=== PATIENT | male | born 1975 | race Caucasian/White ===

== ENCOUNTER 2021-10-10 10:38 | Inpatient (IN) | payer BC, OTHER ==
[2021-10-10] MEDS ORDERED: FUROSEMIDE 10 MG/ML 4 ML VIAL IV STA (11:06)
[2021-10-10] MEDS ORDERED: hydrALAZINE HCL 20 MG/ML 1 ML VIAL IVP STA (11:07)
[2021-10-10] MEDS ORDERED: NITROGLYCERIN OINT 1 INCH/GM PACKET TOPICAL STA (11:07)
--- NOTE | 2021-10-10 11:08 | ED ---
General Adult HPI - General Chief complaint: Shortness of Breath Stated complaint: sob Time Seen by Provider: 10/10/21 10:55 Source: patient, RN notes reviewed, old records reviewed Mode of arrival: ambulatory Limitations: no limitations - History of Present Illness Initial comments: This is a 46-year-old male with past medical history significant for congestive heart failure and high blood pressure. Patient states he is not compliant with any of his medications. Patient states he's had difficulty breathing over the last 2 or 3 days and is getting progressively worse. Patient also has noted swelling in his legs increased. Patient denies any chest pain or palpitations. Patient denies any recent fever chills or cough per patient denies headache patient denies numbness weakness. Patient denies lightheadedness or dizziness. Patient denies any abdominal pain patient denies nausea vomiting diarrhea. Patient denies any calf tenderness. - Related Data Allergies Allergy/AdvReac Type Severity Reaction Status Date / Time No Known Allergies Allergy Verified 10/10/21 10:51 Review of Systems ROS Statement: Those systems with pertinent positive or pertinent negative responses have been documented in the HPI. ROS Other: All systems not noted in ROS Statement are negative. Past Medical History Past Medical History: No Reported History Additional Past Medical History / Comment(s): cardiomyopathy History of Any Multi-Drug Resistant Organisms: None Reported Past Surgical History: Heart Catheterization Past Psychological History: No Psychological Hx Reported Past Alcohol Use History: None Reported Past Drug Use History: None Reported General Exam - General Exam Comments Initial Comments: GENERAL: Patient is well-developed and well-nourished. Patient is nontoxic and well- hydrated and is in mild distress. ENT: Neck is soft and supple. No significant lymphadenopathy is noted. Oropharynx is clear. Moist mucous membranes. Neck has full range of motion without eliciting any pain. EYES: The sclera were anicteric and conjunctiva were pink and moist. Extraocular movements were intact and pupils were equal round and reactive to light. Eyelids were unremarkable. PULMONARY: Unlabored respirations. Good breath sounds bilaterally. No audible rales rhonc hi or wheezing was noted. CARDIOVASCULAR: There is a regular rate and rhythm without any murmurs gallops or rubs. ABDOMEN: Soft and nontender with normal bowel sounds. SKIN: Skin is clear with no lesions or rashes and otherwise unremarkable. NEUROLOGIC: Patient is alert and oriented x3. Cranial nerves II through XII are grossly intact. Motor and sensory are also intact. Normal speech, volume and content. Symmetrical smile. MUSCULOSKELETAL: Normal extremities with adequate strength and full range of motion. 1+ edema bilaterally LYMPHATICS: No significant lymphadenopathy is noted PSYCHIATRIC: Normal psychiatric evaluation. Limitations: no limitations Course Vital Signs 10/10/21 10/10/21 10/10/21 10:48 11:17 11:31 Temperature 98.1 F Pulse Rate 70 104 H Respiratory 22 15 16 Rate Blood Pressure 205/137 152/103 O2 Sat by Pulse 98 94 L Oximetry 10/10/21 10/10/21 11:40 12:02 Temperature Pulse Rate 108 H 105 H Respiratory 25 H 18 Rate Blood Pressure 145/88 141/89 O2 Sat by Pulse 95 Oximetry Medical Decision Making - Medical Decision Making EKG shows sinus tachycardia at 111 bpm UT interval 132 QRS is 96 QT interval 344 QTC is 410. Patient's EKG shows no ST segment elevation or depression. Chest x-ray shows pulmonary edema. Patient received hydralazine emergency department as well as Lasix. I spoke with Dr. Estrada she agreed to admit the patient admitted the patient wrote admitting orders. I consult to cardiology - Lab Data Result diagrams: 10/10/21 11:09 10/10/21 11:09 Lab Results 10/10/21 10/10/21 10/10/21 Range/Units 11:09 11:09 11:09 WBC 7.7 (3.8-10.6) k/uL RBC 5.23 (4.30-5.90) m/uL Hgb 15.0 (13.0-17.5) gm/dL Hct 46.6 (39.0-53.0) % MCV 89.1 (80.0-100.0) fL MCH 28.7 (25.0-35.0) pg MCHC 32.2 (31.0-37.0) g/dL RDW 15.6 H (11.5-15.5) % Plt Count 277 (150-450) k/uL MPV 7.8 Neutrophils % 77 % Lymphocytes % 11 % Monocytes % 6 % Eosinophils % 3 % Basophils % 0 % Neutrophils # 5.9 (1.3-7.7) k/uL Lymphocytes # 0.8 L (1.0-4.8) k/uL Monocytes # 0.4 (0-1.0) k/uL Eosinophils # 0.2 (0-0.7) k/uL Basophils # 0.0 (0-0.2) k/uL Hypochromasia Slight PT 10.6 (9.0-12.0) sec INR 1.0 (<1.2) APTT 23.2 (22.0-30.0) sec Sodium 140 (137-145) mmol/L Potassium 4.5 (3.5-5.1) mmol/L Chloride 100 (98-107) mmol/L Carbon Dioxide 31 H (22-30) mmol/L Anion Gap 9 mmol/L BUN 15 (9-20) mg/dL Creatinine 1.08 (0.66-1.25) mg/dL Est GFR (CKD-EPI)AfAm >90 (>60 ml/min/1.73 sqM) Est GFR (CKD-EPI)NonAf 81 (>60 ml/min/1.73 sqM) Glucose 111 H (74-99) mg/dL Plasma Lactic Acid Arturo (0.7-2.0) mmol/L Calcium 9.0 (8.4-10.2) mg/dL Magnesium 2.0 (1.6-2.3) mg/dL Total Bilirubin 0.9 (0.2-1.3) mg/dL AST 26 (17-59) U/L ALT 33 (4-49) U/L Alkaline Phosphatase 79 (38-126) U/L Troponin I (0.000-0.034) ng/mL NT-Pro-B Natriuret Pep pg/mL Total Protein 7.4 (6.3-8.2) g/dL Albumin 4.1 (3.5-5.0) g/dL 10/10/21 10/10/21 10/10/21 Range/Units 11:09 11:09 11:09 WBC (3.8-10.6) k/uL RBC (4.30-5.90) m/uL Hgb (13.0-17.5) gm/dL Hct (39.0-53.0) % MCV (80.0-100.0) fL MCH (25.0-35.0) pg MCHC (31.0-37.0) g/dL RDW (11.5-15.5) % Plt Count (150-450) k/uL MPV Neutrophils % % Lymphocytes % % Monocytes % % Eosinophils % % Basophils % % Neutrophils # (1.3-7.7) k/uL Lymphocytes # (1.0-4.8) k/uL Monocytes # (0-1.0) k/uL Eosinophils # (0-0.7) k/uL Basophils # (0-0.2) k/uL Hypochromasia PT (9.0-12.0) sec INR (<1.2) APTT (22.0-30.0) sec Sodium (137-145) mmol/L Potassium (3.5-5.1) mmol/L Chloride (98-107) mmol/L Carbon Dioxide (22-30) mmol/L Anion Gap mmol/L BUN (9-20) mg/dL Creatinine (0.66-1.25) mg/dL Est GFR (CKD-EPI)AfAm (>60 ml/min/1.73 sqM) Est GFR (CKD-EPI)NonAf (>60 ml/min/1.73 sqM) Glucose (74-99) mg/dL Plasma Lactic Acid Arturo 1.0 (0.7-2.0) mmol/L Calcium (8.4-10.2) mg/dL Magnesium (1.6-2.3) mg/dL Total Bilirubin (0.2-1.3) mg/dL AST (17-59) U/L ALT (4-49) U/L Alkaline Phosphatase (38-126) U/L Troponin I 0.026 (0.000-0.034) ng/mL NT-Pro-B Natriuret Pep 3870 pg/mL Total Protein (6.3-8.2) g/dL Albumin (3.5-5.0) g/dL Critical Care Time Critical Care Time: Yes Total Critical Care Time: 35 Disposition Clinical Impression: Acute pulmonary edema, Hypertensive emergency Disposition: ADMITTED IP TO THIS HOSP Is patient prescribed a controlled substance at d/c from ED?: No Referrals: None,Stated [Primary Care Provider] - 1-2 days Time of Disposition: 12:13
[2021-10-10 11:26] LABS: Basophils % (A) 0 %; Eosinophils # (A) 0.2 k/uL (0-0.7); Eosinophils % (A) 3 %; HCT 46.6 % (39.0-53.0); Hypochromasia Slight; Lymphocytes # (A) 0.8 k/uL (1.0-4.8); Lymphocytes % (A) 11 %; MCH 28.7 pg (25.0-35.0); MCHC 32.2 g/dL (31.0-37.0); MCV 89.1 fL (80.0-100.0); Mean Platelet Volume 7.8; Monocytes # (A) 0.4 k/uL (0-1.0); Monocytes % (A) 6 %; Neutrophils # (A) 5.9 k/uL (1.3-7.7); Neutrophils % (A) 77 %; Platelet Count 277 k/uL (150-450); RBC 5.23 m/uL (4.30-5.90); RDW 15.6 % (11.5-15.5); WBC 7.7 k/uL (3.8-10.6)
[2021-10-10 11:36] LABS: ALT 33 U/L (4-49); AST 26 U/L (17-59); African American GFR (CKD) >90 (>60 ml/min/1.73 sqM); Albumin 4.1 g/dL (3.5-5.0); Alkaline Phosphatase 79 U/L (38-126); Anion Gap 9 mmol/L; Blood Urea Nitrogen 15 mg/dL (9-20); Carbon Dioxide 31 mmol/L (22-30); Chloride 100 mmol/L (98-107); Glucose 111 mg/dL (74-99); Non-African American GFR(CKD) 81 (>60 ml/min/1.73 sqM); Potassium 4.5 mmol/L (3.5-5.1); Sodium 140 mmol/L (137-145); Total Bilirubin 0.9 mg/dL (0.2-1.3); Total Protein 7.4 g/dL (6.3-8.2)
--- NOTE | 2021-10-10 11:41 | XR ---
EXAMINATION TYPE: XR chest 2V DATE OF EXAM: 10/10/2021 11:36 AM COMPARISON: None. TECHNIQUE: XR chest 2V Frontal and lateral views of the chest. CLINICAL INDICATION:Male, 46 years old with history of difficulty breathing; FINDINGS: Lungs/Pleura: There is no evidence of pleural effusion, focal consolidation, or pneumothorax. Pulmonary vascularity: Mild pulmonary vascular congestion. Heart/mediastinum: Cardiomediastinal silhouette is enlarged. Musculoskeletal: No acute osseous pathology. IMPRESSION: Cardiomegaly and mild pulmonary vascular congestion. Correlate with BNP for congestive heart failure.
[2021-10-10 11:44] LABS: Partial Thromboplastin Time 23.2 sec (22.0-30.0); Prothrombin Time 10.6 sec (9.0-12.0)
[2021-10-10] MEDS: NITROGLYCERIN OINT 1 INCH/GM PACKET TOPICAL SCH ×3 (12:22→23:28)
[2021-10-10] MEDS ORDERED: NALOXONE 0.4 MG/ML 1 ML VIAL IV PRN (15:57)
--- NOTE | 2021-10-10 17:05 | P.HPIM ---
History of Present Illness H&P Date: 10/10/21 Chief Complaint: sob 46-year-old male with past medical history significant for congestive heart failure and high blood pressure presented for sob which has been worsening for the past 2 days. He has lower extremities edema for the same period. Patient states he is not compliant with any of his medications and has not taken them for a while now. Has cough productive of white phlegm. Patient denies any chest pain or palpitations. Patient denies any recent fever chills. No headache, no numbness weakness. Patient denies lightheadedness or dizziness. Patient denies any abdominal pain patient denies nausea vomiting diarrhea. Patient denies any calf tenderness. In the ER he was found to be in CHF, BNP 3870, CXR with cardiomegaly and vascular congestion, he was given IV lasix. He is feeling better now, will be admitted for further evaluation. Review of Systems Complete review of system performed, pertinent positives per HPI, otherwise negative Past Medical History Past Medical History: No Reported History Additional Past Medical History / Comment(s): cardiomyopathy History of Any Multi-Drug Resistant Organisms: None Reported Past Surgical History: Heart Catheterization Past Psychological History: No Psychological Hx Reported Past Alcohol Use History: None Reported Past Drug Use History: None Reported Medications and Allergies Home Medications Medication Instructions Recorded Confirmed Type No Known Home Medications 10/10/21 10/10/21 History Allergies Allergy/AdvReac Type Severity Reaction Status Date / Time No Known Allergies Allergy Verified 10/10/21 12:51 Physical Exam Vitals: Vital Signs Temp Pulse Resp BP Pulse Ox 10/10/21 13:57 95 17 133/84 95 10/10/21 13:10 92 18 140/73 10/10/21 12:40 96 15 135/88 10/10/21 12:02 105 H 18 141/89 95 10/10/21 11:40 108 H 25 H 145/88 10/10/21 11:31 16 10/10/21 11:17 104 H 15 152/103 94 L 10/10/21 10:48 98.1 F 70 22 205/137 98 Intake and Output 10/10/21 10/10/21 10/10/21 06:59 14:59 22:59 Output Total 2400 Balance -2400 Output: Urine 2400 Other: # Voids 3 Weight 140.614 kg Constitutional: No acute distress, conversant, pleasant Eyes:Anicteric sclerae, moist conjunctiva, no lid-lag, PERRLA, ENMT: Oropharynx clear, no erythema, exudates Neck: Supple, FROM, no masses, or JVD, No carotid bruits, No thyromegaly Lungs: Clear to auscultation, Clear to percussion, Normal respiratory effort, no accessory muscle use Cardiovascular: Heart regular in rate and rhythm, No murmurs, gallops, or rubs, 2+ peripheral edema Abdominal: Soft, Nontender, no guarding, rebound or rigidity, Normoactive bowel sounds, No hepatomegaly, No splenomegaly, No palpable mass Skin: Normal temperature, tone, texture, turgor, no induration, No subcutaneous nodules, No rash, lesions, No ulcers Extremities: No digital cyanosis, No clubbing, Pedal pulses intact and symmetrical, Radial pulses intact and symmetrical, No calf tenderness Psychiatric: Alert and oriented to person, place and time, appropriate affect, intact judgement Neuro: Muscles Strength 5/5 in all 4 extremities, Sensation to light touch grossly present throughout, Cranial nerves II-XII grossly intact, no focal sensory deficits Results CBC & Chem 7: 10/10/21 11:09 10/10/21 11:09 Labs: Abnormal Lab Results - Last 24 Hours (Table) 10/10/21 10/10/21 Range/Units 11:09 11:09 RDW 15.6 H (11.5-15.5) % Lymphocytes # 0.8 L (1.0-4.8) k/uL Carbon Dioxide 31 H (22-30) mmol/L Glucose 111 H (74-99) mg/dL Assessment and Plan Plan: Acute exacerbation of congestive heart failure Unknown type Echocardiogram Cardiology consult Telemetry Lasix IV Monitor Is and Os and daily weights Hypertensive urgency Resume BP meds IV hydralazine as needed DVT prophylaxis Lovenox subcu Admit to inpatient, expected length of stay more than 2 midnights.
[2021-10-10] MEDS: FUROSEMIDE 10 MG/ML 4 ML VIAL IV SCH (19:44)
[2021-10-11] MEDS: FUROSEMIDE 10 MG/ML 4 ML VIAL IV SCH (04:27)
[2021-10-11 08:40] LABS: Basophils % (A) 0 %; Eosinophils # (A) 0.2 k/uL (0-0.7); Eosinophils % (A) 2 %; HCT 47.2 % (39.0-53.0); HGB 14.6 gm/dL (13.0-17.5); Hypochromasia Slight; Lymphocytes # (A) 0.7 k/uL (1.0-4.8); Lymphocytes % (A) 7 %; MCH 27.4 pg (25.0-35.0); MCHC 30.8 g/dL (31.0-37.0); MCV 88.8 fL (80.0-100.0); Mean Platelet Volume 7.7; Monocytes # (A) 0.7 k/uL (0-1.0); Monocytes % (A) 6 %; Neutrophils # (A) 9.1 k/uL (1.3-7.7); Neutrophils % (A) 84 %; Platelet Count 307 k/uL (150-450); RBC 5.32 m/uL (4.30-5.90); RDW 15.5 % (11.5-15.5); WBC 10.9 k/uL (3.8-10.6)
[2021-10-11 08:55] LABS: ALT 29 U/L (4-49); AST 23 U/L (17-59); African American GFR (CKD) 84 (>60 ml/min/1.73 sqM); Alkaline Phosphatase 77 U/L (38-126); Anion Gap 11 mmol/L; Blood Urea Nitrogen 19 mg/dL (9-20); Carbon Dioxide 35 mmol/L (22-30); Chloride 92 mmol/L (98-107); Glucose 109 mg/dL (74-99); Non-African American GFR(CKD) 73 (>60 ml/min/1.73 sqM); Potassium 3.8 mmol/L (3.5-5.1); Sodium 138 mmol/L (137-145); Total Bilirubin 1.7 mg/dL (0.2-1.3); Total Protein 7.2 g/dL (6.3-8.2)
[2021-10-11] MEDS: ENOXAPARIN 40 MG/0.4 ML SYRINGE SQ SCH (09:23)
[2021-10-11] MEDS: FUROSEMIDE 40 MG TAB PO SCH ×2 (09:23→16:54)
[2021-10-11] MEDS: carvediloL 12.5 MG TAB PO SCH ×2 (09:23→16:54)
--- NOTE | 2021-10-11 10:33 | P.CRDCN ---
History of Present Illness History of present illness: HISTORY OF PRESENTING ILLNESS This is a pleasant 46-year-old male with a history of cardiomyopathy unknown if ischemic or non-ischemic, chronic nicotine dependence, hypertension, medication noncompliance. He used to follow with Dr. Fuller. We have been consulted for congestive heart failure. Patient presents emergency department with complaints of worsening shortness of breath over 2 days. He also noted increased bilateral lower extremity edema. He states that he has stopped taking his medications for a while now. He has not followed up with Dr. Fuller. He denies any chest pain, palpitations, light numbness, dizziness, syncope or near syncope. On admission, he was hypertensive with BP 205/137. He was started on IV Lasix 40 mg Q8hr. Diuresed will with 3.3L urine output and is feeling much better. He denies any shortness of breath this morning or chest pain. He states he does not recall being told why he has heart failure. He states 2 years ago these symptoms occurred and he was told he had congestive heart failure. No known history of [place], Stroke, Diabetes, CAD. He denies illicit drug use or alcohol use. Previous medications included Entresto, Coreg, and Lasix. DIAGNOSTICS * EKG reveals sinus tachycardia, heart rate 111, LVH, no acute ischemia on EKG noted. * Telemetry tracings indicate sinus mechanism * Chest xray revealed likely, mild pulmonary congestion. * Laboratory reviewed, sodium 138, potassium 3.8, BUN 19, serum creatinine 1.18, troponin negative complement PEEP thousand 870, TSH within normal limits REVIEW OF SYSTEMS At the time of my exam: CONSTITUTIONAL: Denies fever or chills. CARDIOVASCULAR: Denies chest pain, +shortness of breath, orthopnea, PND RESPIRATORY: Denies cough. GASTROINTESTINAL: Denies abdominal pain, diarrhea, constipation, nausea or vomiting. MUSCULOSKELETAL: Denies myalgias. NEUROLOGIC: Denies numbness, tingling, headacbe or weakness. ENDOCRINE: Denies fatigue, weight change, polydipsia or polyurina. GENITOURINARY: Denies burning, hematuria or urgency with micturation. HEMATOLOGIC: Denies history of anemia or bleeding. PHYSICAL EXAMINATION Blood pressure 137/60, heart rate 107, afebrile, oxygen saturations 92-97% on r oom air CONSTITUTIONAL: No apparent distress. HEENT: Head is normocephalic. Pupils are equal, round. Sclerae anicteric. Mucous membranes of the mouth are moist. No JVD. CHEST EXAMINATION: Lungs are diminished bilaterally to auscultation. No chest wall tenderness is noted on palpation or with deep breathing. HEART EXAMINATION: Regular rate and rhythm. S1, S2 heard. ABDOMEN: Soft, nontender. Positive bowel sounds. EXTREMITIES: 2+ peripheral pulses, trace bilateral lower extremity edema and no calf tenderness. NEUROLOGIC EXAMINATION: Patient is awake, alert and oriented x3. ASSESSMENT Acute on chronic heart failure with reduced ejection fraction History of cardiomyopathy, unknown if ischemic vs non-ischemic Hypertension Chronic nicotine dependence Medication non-compliance PLAN Obtain 2D echocardiogram and doppler study to assess cardiac structure and function. Transition to PO Lasix 40mg BID Start carvedilol 12.5mg BID Will slowly add back heart failure regimen Smoking cessation discussed and highly recommended Recommend close follow up with missile inspector Dr. Fuller or in [place] based on patient preference Nurse practitioner note has been reviewed by physician. Signing provider agrees with the documented findings, assessment, and plan of care. Past Medical History Past Medical History: No Reported History Additional Past Medical History / Comment(s): cardiomyopathy History of Any Multi-Drug Resistant Organisms: None Reported Past Surgical History: Heart Catheterization Past Psychological History: No Psychological Hx Reported Past Alcohol Use History: None Reported Past Drug Use History: None Reported Medications and Allergies Home Medications Medication Instructions Recorded Confirmed Type No Known Home Medications 10/10/21 10/10/21 History Allergies Allergy/AdvReac Type Severity Reaction Status Date / Time No Known Allergies Allergy Verified 10/10/21 12:51 Physical Exam Vitals: Vital Signs Temp Pulse Resp BP Pulse Ox 10/10/21 12:02 105 H 18 141/89 95 10/10/21 11:40 108 H 25 H 145/88 10/10/21 11:31 16 10/10/21 11:17 104 H 15 152/103 94 L 10/10/21 10:48 98.1 F 70 22 205/137 98 Intake and Output 10/09/21 10/10/21 10/10/21 22:59 06:59 14:59 Other: Weight 140.614 kg Results 10/11/21 07:44 10/11/21 07:44 Cardiac Enzymes 10/10/21 10/10/21 Range/Units 11:09 11:09 AST 26 (17-59) U/L Troponin I 0.026 (0.000-0.034) ng/mL Coagulation 10/10/21 Range/Units 11:09 PT 10.6 (9.0-12.0) sec APTT 23.2 (22.0-30.0) sec CBC 10/10/21 Range/Units 11:09 WBC 7.7 (3.8-10.6) k/uL RBC 5.23 (4.30-5.90) m/uL Hgb 15.0 (13.0-17.5) gm/dL Hct 46.6 (39.0-53.0) % Plt Count 277 (150-450) k/uL Comprehensive Metabolic Panel 10/10/21 Range/Units 11:09 Sodium 140 (137-145) mmol/L Potassium 4.5 (3.5-5.1) mmol/L Chloride 100 (98-107) mmol/L Carbon Dioxide 31 H (22-30) mmol/L BUN 15 (9-20) mg/dL Creatinine 1.08 (0.66-1.25) mg/dL Glucose 111 H (74-99) mg/dL Calcium 9.0 (8.4-10.2) mg/dL AST 26 (17-59) U/L ALT 33 (4-49) U/L Alkaline Phosphatase 79 (38-126) U/L Total Protein 7.4 (6.3-8.2) g/dL Albumin 4.1 (3.5-5.0) g/dL Current Medications Generic Name Dose Route Start Last Admin Trade Name Freq PRN Reason Stop Dose Admin Furosemide 40 mg 10/10/21 19:00 Furosemide 10 Mg/Ml 4 Ml Vial IV Q8H VENKAT Nitroglycerin 1 inch 10/10/21 14:00 10/10/21 12:22 Nitroglycerin Oint 1 Inch/Gm Packet TOPICAL Not Given QID VENKAT Intake and Output 10/09/21 10/10/21 10/10/21 22:59 06:59 14:59 Other: Weight 140.614 kg Patient Weight 10/11/21 06:59 Weight 140.614 kg 10/10/21 11:09 10/10/21 11:09
[2021-10-11 11:25] LABS: Chol/HDL Ratio 4.37 Ratio; LDL Cholesterol,Calculated 101.8 mg/dL (0.0-131.0)
--- NOTE | 2021-10-11 13:23 | P.PN ---
Subjective Progress Note Date: 10/11/21 Principal diagnosis: sob Patient is feeling a lot better today compared to yesterday. He denied having shortness of breath, dizziness or weakness. No chest pain and no palpitation. Objective - Vital Signs Vital signs: Vital Signs Temp 97.8 F 10/11/21 12:34 Pulse 91 10/11/21 12:34 Resp 18 10/11/21 12:34 BP 123/63 10/11/21 12:34 Pulse Ox 92 L 10/11/21 12:34 FiO2 Intake & Output 10/10/21 10/11/21 10/11/21 18:59 06:59 18:59 Intake Total 360 Output Total 2400 900 950 Balance -2400 -900 -777 Weight 140.614 kg 139.7 kg Intake: Oral 360 Output: Urine 2400 900 950 Other: # Voids 3 - Exam Constitutional: No acute distress, conversant, pleasant Eyes:Anicteric sclerae, moist conjunctiva, no lid-lag, PERRLA, ENMT: Oropharynx clear, no erythema, exudates Neck: Supple, FROM, no masses, or JVD, No carotid bruits, No thyromegaly Lungs: Clear to auscultation, Clear to percussion, Normal respiratory effort, no accessory muscle use Cardiovascular: Heart regular in rate and rhythm, No murmurs, gallops, or rubs, No peripheral edema Abdominal: Soft, Nontender, no guarding, rebound or rigidity, Normoactive bowel sounds, No hepatomegaly, No splenomegaly, No palpable mass Skin: Normal temperature, tone, texture, turgor, no induration, No subcutaneous nodules, No rash, lesions, No ulcers Extremities: No digital cyanosis, No clubbing, Pedal pulses intact and symmetrical, Radial pulses intact and symmetrical, No calf tenderness Psychiatric: Alert and oriented to person, place and time, appropriate affect, intact judgement Neuro: Muscles Strength 5/5 in all 4 extremities, Sensation to light touch grossly present throughout, Cranial nerves II-XII grossly intact, no focal sensory deficits - Labs CBC & Chem 7: 10/11/21 07:44 10/11/21 07:44 Labs: Abnormal Lab Results - Last 24 Hours (Table) 10/11/21 10/11/21 10/11/21 Range/Units 07:44 07:44 07:44 WBC 10.9 H (3.8-10.6) k/uL MCHC 30.8 L (31.0-37.0) g/dL Neutrophils # 9.1 H (1.3-7.7) k/uL Lymphocytes # 0.7 L (1.0-4.8) k/uL Chloride 92 L (98-107) mmol/L Carbon Dioxide 35 H (22-30) mmol/L Glucose 109 H (74-99) mg/dL Hemoglobin A1c 6.2 H (0.0-6.0) % Total Bilirubin 1.7 H (0.2-1.3) mg/dL HDL Cholesterol 36.40 L (40.00-60.00) mg/dL Assessment and Plan Plan: Acute exacerbation of congestive heart failure Unknown type Echocardiogram pending Patient was evaluated by cardiology Transition to PO Lasix 40mg BID Start carvedilol 12.5mg BID Director Of Managed Services Is and Os and daily weights Hypertensive urgency Resume BP meds IV hydralazine as needed DVT prophylaxis Lovenox subcu Anticipated discharge in a.m.
[2021-10-11 15:18] VITALS: BMI 46.8
--- NOTE | 2021-10-11 18:25 | CA ---
Transthoracic Echo Report Name: Hira Ibrahim Age: 46 Gender: M : 1975 Exam Date: 10/11/2021 07:48 Exam Location: [facility] Ht (in): 68 Wt (lb): 307 Ordering Physician: Diana Soto MD Attending/Referring Phys: [id number], Brittany Risk Control Officer Deepali Esquivel RDCS Procedure CPT: Indications: chf Cardiac Hx: Technical Quality: Technically difficult study Contrast 1: Lumason Total Dose (mL): 4 Contrast 2: Total Dose (mL): MEASUREMENTS (Male / Female) Normal Values 2D ECHO LV Diastolic Diameter PLAX 6.1 cm 4.2 - 5.9 / 3.9 - 5.3 cm LV Systolic Diameter PLAX 5.2 cm IVS Diastolic Thickness 1.6 cm 0.6 - 1.0 / 0.6 - 0.9 cm LVPW Diastolic Thickness 1.6 cm 0.6 - 1.0 / 0.6 - 0.9 cm LV Relative Wall Thickness 0.5 RV Internal Dim ED PLAX 3.1 cm M-MODE Aortic Root Diameter MM 3.2 cm LA Systolic Diameter MM 4.8 cm LA Ao Ratio MM 1.5 AV Cusp Separation MM 2.0 cm DOPPLER MV Area PHT 4.4 cm??? Mitral E Point Velocity 77.4 cm/s Mitral A Point Velocity 66.8 cm/s Mitral E to A Ratio 1.2 MV Deceleration Time 172.2 ms TR Peak Velocity 195.7 cm/s TR Peak Gradient 15.3 mmHg Right Ventricular Systolic Press 20.3 mmHg FINDINGS Left Ventricle Mildly increased left ventricular diastolic diameter. Moderately increased left ventricular wall thickness. Moderately reduced global left ventricular systolic function. Left ventricular ejection fraction is estimated at 35-40 %. Right Ventricle Right ventricle not well visualized. Right Atrium Right atrium not well visualized. Left Atrium Left atrium not well visualized. Mitral Valve Mitral valve not well visualized. No mitral stenosis. No mitral regurgitation. Aortic Valve Aortic valve not well visualized. No aortic valve stenosis or regurgitation. Tricuspid Valve Tricuspid valve not well visualized. Mild tricuspid regurgitation. Pulmonic Valve Pulmonic valve not well visualized. Pericardium No pericardial effusion. Aorta Aortic root and proximal ascending aorta not well visualized. CONCLUSIONS Technically difficult study. Lumason ECHO contrast used for improved visualization of the endocardial borders (inadequate visualization of two or more contiguous segments). Moderate global hypokinesis, evaluation of segmental wall motion could not be done. Valvular structure could not be evaluated Previewed by: Dr. Jonathon Doll MD (Electronically Signed) Final Date: 11 October 2021 18:24
[2021-10-11 20:14] LABS: Urine Alcohol Negative (Negative); Urine Barbiturate Negative (Negative); Urine Cocaine Negative (Negative); Urine Methadone Negative (Negative); Urine Opiates Negative (Negative); Urine Phencyclidine Negative (Negative)
[2021-10-12] MEDS: carvediloL 12.5 MG TAB PO SCH ×2 (06:37→16:35)
[2021-10-12] MEDS: FUROSEMIDE 40 MG TAB PO SCH ×2 (08:53→16:35)
[2021-10-12] MEDS: ENOXAPARIN 40 MG/0.4 ML SYRINGE SQ SCH (08:53)
--- NOTE | 2021-10-12 09:53 | P.DS ---
Providers Date of admission: 10/10/21 12:14 Expected date of discharge: 10/12/21 Attending physician: Doris Estrada DO Consults: 10/10/21 12:14 Consult Physician Routine Consulting Provider: [facility] Consult Reason/Comments: Acute pulmonary edema, hypertensive urgency Do you want consulting provider notified?: Yes Primary care physician: Stated None Hospital Course: 46-year-old male with past medical history significant for congestive heart failure and high blood pressure presented for sob which has been worsening for the past 2 days. He has lower extremities edema for the same period. Patient states he is not compliant with any of his medications and has not taken them for a while now. Has cough productive of white phlegm. Patient denies any chest pain or palpitations. Patient denies any recent fever chills. No headache, no numbness weakness. Patient denies lightheadedness or dizziness. Patient denies any abdominal pain patient denies nausea vomiting diarrhea. Patient denies any calf tenderness. In the ER he was found to be in CHF, BNP 3870, CXR with cardiomegaly and vascular congestion, he was given IV lasix. He is feeling better now, will be admitted for further evaluation. Patient was continued on diuresis upon admission. He felt much better with that. His weight decreased. Edema improved. He had an echocardiogram that showed ejection fraction of 35-40%. He was seen by cardiology who initiated him on Coreg. Lasix was transitioned to oral. He'll need to follow up with cardiology in the office. He will be discharged home in stable condition. Time for discharge 35 minutes Plan - Discharge Summary Discharge Rx Participant: Yes New Discharge Prescriptions: New Furosemide [Lasix] 40 mg PO DAILY 30 Days #30 tablet carvediloL [Coreg*] 12.5 mg PO BID-W/MEALS 30 Days #60 tab Discharge Medication List Furosemide [Lasix] 40 mg PO DAILY 30 Days #30 tablet 10/12/21 [Rx] carvediloL [Coreg*] 12.5 mg PO BID-W/MEALS 30 Days #60 tab 10/12/21 [Rx] Follow up Appointment(s)/Referral(s): Fredrick Villanueva MD [STAFF PHYSICIAN] - 1 Week Rachel Fuller MD [REFERRING] - 1 Week None,Stated [Primary Care Provider] - 1-2 days Patient Instructions/Handouts: Heart Failure (DC)
[2021-10-12 10:10] VITALS: RESP 18; TEMP 97.8
[2021-10-12 10:35] LABS: African American GFR (CKD) >90 (>60 ml/min/1.73 sqM); Anion Gap 12 mmol/L; Blood Urea Nitrogen 25 mg/dL (9-20); Calcium 9.1 mg/dL (8.4-10.2); Carbon Dioxide 33 mmol/L (22-30); Chloride 93 mmol/L (98-107); Glucose 159 mg/dL (74-99); Non-African American GFR(CKD) 86 (>60 ml/min/1.73 sqM); Sodium 138 mmol/L (137-145)
[2021-10-12 10:40] LABS: Potassium 4.3 mmol/L (3.5-5.1)
[2021-10-12] MEDS ORDERED: lisinopriL 5 MG TAB PO SCH (11:00)
[2021-10-12] MEDS ORDERED: SPIRONOLACTONE 25 MG TAB PO SCH (11:00)
--- NOTE | 2021-10-12 11:09 | P.PN ---
Subjective Progress Note Date: 10/12/21 PROGRESS NOTE The patient is a 46-year-old male with a known history of cardiomyopathy, noncompliance who presented with worsening CHF. He is feeling better this morning. His medical regimen was reinitiated. He was not taking any medication prior to admission. He denies any dizziness, palpitation or syncope. He continues to be in sinus mechanism. He has no PND or orthopnea. Medications: Coreg 12-1/2 mg twice a day, Lasix 40 mg twice daily PHYSICAL EXAMINATION: Blood pressure 132/70 heart rate 80 LUNGS: Clear to auscultation HEART: Regular rate and rhythm, S1, S2. No S3. systolic ejection murmur ABDOMEN: Soft, nontender, no organomegaly EXTREMETIES: +1-2 edema LAB: BUN 25, creatinine 1.03, potassium 4.3 IMPRESSION: 1. CHF with systolic dysfunction, exacerbation secondary to noncompliance 2. Chronic tobacco use 3. History of hypertension 4. Medical noncompliance PLAN: 1. Start Aldactone 2. Restart Entresto 3. Increase physical activity 4. 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 Objective - Vital Signs Vital signs: Vital Signs Temp 97.8 F 10/12/21 08:00 Pulse 86 10/12/21 08:00 Resp 18 10/12/21 08:00 BP 102/55 10/12/21 08:00 Pulse Ox 92 L 10/12/21 08:00 FiO2 Intake & Output 10/11/21 10/12/21 10/12/21 18:59 06:59 18:59 Intake Total 1320 360 Output Total 1250 Balance 70 360 Weight 139.7 kg 140.4 kg Intake: Oral 1320 360 Output: Urine 1250 Other: Voiding Method Toilet Toilet Urinal Urinal - Labs CBC & Chem 7: 10/11/21 07:44 10/12/21 09:04 Labs: Abnormal Lab Results - Last 24 Hours (Table) 10/11/21 10/11/21 10/12/21 Range/Units 07:44 07:44 09:04 Chloride 93 L (98-107) mmol/L Carbon Dioxide 33 H (22-30) mmol/L BUN 25 H (9-20) mg/dL Glucose 159 H (74-99) mg/dL Hemoglobin A1c 6.2 H (0.0-6.0) % HDL Cholesterol 36.40 L (40.00-60.00) mg/dL
[2021-10-12] MEDS ORDERED: SACUBITRIL/VALSARTAN 24 MG-26 MG TABLET PO SCH (12:00)
[2021-10-12 18:03] VITALS: BP 129/84; PULSE 86
== END 2021-10-12 18:08 | disposition home or self-care (01) | DRG 291 ==
LOC: EC 10:38 → 3SCARD 12:14
PROVIDERS: ADMIT Internal Medicine; ATTEND Internal Medicine
DX: I11.0 Hypertensive heart disease with heart failure (principal); I50.23 Acute on chronic systolic (congestive) heart failure; I16.1 Hypertensive emergency; I42.9 Cardiomyopathy, unspecified; R00.0 Tachycardia, unspecified; F17.210 Nicotine dependence, cigarettes, uncomplicated; Z98.61 Coronary angioplasty status; Z91.14 Patient's other noncompliance with medication regimen; Z91.19 Patient's noncompliance with other medical treatment and regimen
CPT/HCPCS: 36415; 71046; 80048; 80053; 80061; 80306; 83036; 83605; 83735; 83880; 84443; 84484; 85025; 85610; 85730; 93005; 93306; 96374; 96375; 99291

== ENCOUNTER 2024-08-11 06:38 | Day surgery (SDC) | payer BC ==
[2024-08-09 15:47] VITALS: BMI 45.6
[2024-08-11] MEDS ORDERED: LIDOCAINE 1% (10MG/ML) FOR IV START INTRADERMA PRN (06:54)
[2024-08-11] MEDS: IV FLUID CONTINUATION 1,000 ML IV ONE (07:12)
[2024-08-11] MEDS: LACTATED RINGERS 1,000 ML IV SCH (07:27)
[2024-08-11 07:31] LABS: Glucose,Whole Blood 92 mg/dL (70-110)
[2024-08-11 07:35] VITALS: TEMP 97.6
[2024-08-11] MEDS ORDERED: LIDOCAINE 1% INJ 10MG/ML (20 ML MDV) ONE (07:39)
[2024-08-11] MEDS ORDERED: PROPOFOL 10 MG/ML 20 ML VIAL IV ONE (07:39)
--- NOTE | 2024-08-11 07:43 | P.GSHP ---
History of Present Illness H&P Date: 08/11/24 Chief Complaint: Positive Cologuard test Is a 49-year-old male who presents today for colonoscopy. Patient had a recent positive Cologuard test. Past Medical History Past Medical History: Diabetes Mellitus, Hyperlipidemia, Hypertension, Thyroid Disorder Additional Past Medical History / Comment(s): cardiomyopathy History of Any Multi-Drug Resistant Organisms: None Reported Past Surgical History: Heart Catheterization, Orthopedic Surgery Additional Past Surgical History / Comment(s): LT KNEE SCOPE Past Anesthesia/Blood Transfusion Reactions: No Reported Reaction Smoking Status: Former smoker - Past Family History Mother Family Medical History: No Reported History Medications and Allergies Home Medications Medication Instructions Recorded Confirmed Type Sacubitril/Valsartan [Entresto 24 1 each PO BID 30 Days #60 tab 10/12/21 08/11/24 Rx mg-26 mg Tablet] Spironolactone [Aldactone] 25 mg PO DAILY 30 Days #30 tab 10/12/21 08/11/24 Rx carvediloL [Coreg*] 12.5 mg PO BID-W/MEALS 30 Days #60 10/12/21 08/11/24 Rx tab Atorvastatin [Lipitor] 40 mg PO DAILY 08/09/24 08/11/24 History Empagliflozin [Jardiance] 25 mg PO DAILY 08/09/24 08/11/24 History Ezetimibe [Zetia] 10 mg PO DAILY 08/09/24 08/11/24 History Furosemide [Lasix] 20 mg PO DAILY 08/09/24 08/11/24 History Levothyroxine Sodium 12.5 mcg PO DAILY 08/09/24 08/11/24 History metFORMIN HCL [Glucophage] 500 mg PO DAILY 08/09/24 08/11/24 History Allergies Allergy/AdvReac Type Severity Reaction Status Date / Time No Known Allergies Allergy Verified 08/11/24 07:20 Surgical - Exam Vital Signs Temp Pulse Resp BP Pulse Ox 97.6 F 79 18 108/47 93 L 08/11/24 07:10 08/11/24 07:10 08/11/24 07:10 08/11/24 07:10 08/11/24 07:10 - General well developed, well nourished, no distress - Eyes PERRL - ENT normal pinna - Neck no masses - Cardiovascular Rhythm: regular - Abdomen Abdomen: soft, non tender Assessment and Plan Plan: Positive Cologuard test. Will perform colonoscopy.
--- NOTE | 2024-08-11 07:59 | P.OP ---
Date of Procedure: 08/11/24 Preoperative Diagnosis: Positive Cologuard test Postoperative Diagnosis: Multiple colon polyps Procedure(s) Performed: Colonoscopy Anesthesia: MAC Surgeon: Maxim Ireland Pathology: other (Left colon polyp, transverse colon polyp, right colon polyp) Condition: stable Disposition: PACU Description of Procedure: The patient was placed on the endoscopy table in the lateral position. He received IV sedation. Digital rectal exam was performed. This revealed no abnormalities. Flexible colonoscope was then placed patient Anaspaz throughout the entire colon. The ileocecal valve was visualized. The cecum appeared normal. In the right colon there was a small. Removed with the cold forcep. The scope Cinobac and the Mainer the right colon appeared normal. In the transverse colon there is another polyp seen previously with a snare. The scope was then brought back the left colon another polyp was seen and this was removed with a snare. The scope was Ruback sigmoid colon this appeared normal. Scope withdrawn into the rectum this was normal. Scope withdrawn patient. Summary findings patient had multiple polyps. He will have a repeat colonoscopy in 2 years.
[2024-08-11 08:18] VITALS: BP 110/63; PULSE 78; RESP 16
== END 2024-08-11 08:31 | disposition home or self-care (01) ==
LOC: ORWHC2ENDO 06:38
PROVIDERS: ATTEND Surgery
DX: D12.2 Benign neoplasm of ascending colon (principal); D12.3 Benign neoplasm of transverse colon; D12.4 Benign neoplasm of descending colon; E11.9 Type 2 diabetes mellitus without complications; E78.5 Hyperlipidemia, unspecified; I11.0 Hypertensive heart disease with heart failure; I50.9 Heart failure, unspecified; E03.9 Hypothyroidism, unspecified; I42.9 Cardiomyopathy, unspecified; Z79.84 Long term (current) use of oral hypoglycemic drugs; Z79.890 Hormone replacement therapy; Z87.891 Personal history of nicotine dependence; Z79.899 Other long term (current) drug therapy
CPT/HCPCS: 88305; 45380; 45385; J2003; J2704